=== PATIENT | female | born 1985 ===

== ENCOUNTER → 2017-07-15 | Outpatient (REF) | payer OTHER ==
[2017-07-15 19:14] LABS: VITAMIN B12 LEVEL 328 PG/ML (247-911)
== END ==
LOC: M LAB REF 17:35
DX: D51.9 Vitamin B12 deficiency anemia, unspecified (principal)

== ENCOUNTER → 2017-10-17 | Outpatient (REF) | payer OTHER ==
[2017-10-17 14:26] LABS: CONTROL LINE HPYORI INT CTR LINE PRESENT; H PYLORI QUALITATIVE IgG NEGATIVE (NEGATIVE)
== END ==
LOC: M LAB REF 13:22
DX: K30 Functional dyspepsia (principal)

== ENCOUNTER → 2018-02-10 | Outpatient (REF) | payer OTHER | LOC: M LAB REF 18:16 | DX: Z12.4 Encounter for screening for malignant neoplasm of cervix (principal) | CPT/HCPCS: G0123 ==